=== PATIENT | male | born 1965 | race Caucasian/White ===

== ENCOUNTER 2017-09-25 23:04 | Emergency (ER) | payer BC ==
[~2017-09-25] VITALS: Ht 180.3 cm; Wt 116.7 kg
[2017-09-25 23:21] LABS: HEMATOCRIT 48.8 % (38.0-50.0); HEMOGLOBIN 16.4 G/DL (12.5-16.6); MCH 32.5 PG (29.0-34.0); MCHC 33.6 G/DL (30.0-36.0); MCV 96.6 FL (86-99); RBC DIS.WIDTH-CV 12.5 % (11.8-14.6); RBC DIS.WIDTH-SD 44.2 % (39-53); RED BLOOD COUNT 5.05 M/uL (4.00-5.50); WHITE BLOOD COUNT 7.1 K/uL (4.1-10.2)
[2017-09-25 23:30] LABS: APPEARANCE CLEAR ((CLEAR)); BILIRUBIN NEGATIVE; BLOOD NEGATIVE; COLOR AMBER ((YELLOW)); GLUCOSE (STRIP) NEGATIVE; KETONES NEGATIVE; LEUKOCYTES NEGATIVE; NITRITE NEGATIVE; PROTEIN (STRIP) NEGATIVE; SPECIFIC GRAVITY 1.025 (1.000-1.030); UCUL ADDED? NO
[2017-09-25 23:43] LABS: ALBUMIN 4.3 G/DL (3.2-4.8); CHLORIDE 104 MEQ/L (99-109); POTASSIUM 3.8 MEQ/L (3.7-5.4); SODIUM 138 MEQ/L (136-147); TOTAL BILIRUBIN 2.2 MG/DL (0.0-1.0)
[2017-09-25 23:48] LABS: ALKALINE PHOSPHATASE 190 IU/L (3-129); ALT (GPT) 295 IU/L (3-49); AST (GOT) 128 IU/L (2-34); GFR ESTIMATE (CALCULATED) > 59 mL/min/ (58.99-99999); GLUCOSE 99 mg/dL (70-99); LIPASE 33 U/L (1.0-51.0); TOTAL PROTEIN 7.3 G/DL (6.4-8.3); UREA NITROGEN (BUN) 20 mg/dL (9-23)
[2017-09-26 00:11] LABS: PLAT.SUFFICIENCY ADEQUATE; PLATELET COUNT 228 K/uL (156-360)
[2017-09-26 00:21] LABS: ACETAMINOPHEN (TYLENOL) < 10 MCG/ML (10-30); SALICYLATE < 3.0 MG/DL (15-30)
[2017-09-26 01:20] LABS: MONOSPOT (MONONUCLEOSIS SEROL) NEGATIVE
[2017-09-26 02:03] LABS: CREATINE KINASE 53 IU/L (1-294)
[2017-09-26] MEDS ORDERED: ULTRAM50 MG PO (02:07)
[2017-09-26] MEDS ORDERED: FLEXERIL10 MG PO (02:07)
[2017-09-26 02:48] VITALS: BP 123/67
== END 2017-09-26 02:49 | disposition home or self-care (01) ==
LOC: EME 23:04
PROVIDERS: Emergency Medicine
DX: R10.13 Epigastric pain (principal); R74.0 Nonspecific elevation of levels of transaminase and lactic acid dehydrogenase [LDH]; R79.89 Other specified abnormal findings of blood chemistry; Z87.442 Personal history of urinary calculi
CPT/HCPCS: 80053; 81003; 82140; 82248; 82550; 83690; 85027; 86308; 99281; 99285; G0480; J7030

== ENCOUNTER → 2017-09-30 | Outpatient (CLI) | payer BC ==
[~2017-09-30] MED LIST: FLEXERIL10 MG PO; ULTRAM50 MG PO
== END | disposition home or self-care (01) ==
LOC: CDC 09:24
DX: Z01.810 Encounter for preprocedural cardiovascular examination (principal); K80.20 Calculus of gallbladder without cholecystitis without obstruction; R00.1 Bradycardia, unspecified; R94.31 Abnormal electrocardiogram [ECG] [EKG]
CPT/HCPCS: 93000

== ENCOUNTER 2017-10-05 10:18 | Day surgery (SDC) | payer BC ==
[~2017-10-05] VITALS: Ht 180.3 cm; Wt 113.6 kg
[2017-10-05] MEDS ORDERED: MELOXICAM15 MG PO (10:31)
[2017-10-05] MEDS ORDERED: GABAPENTIN300 MG PO (10:31)
[2017-10-05] MEDS ORDERED: UROCIT-K15 MEQ PO (10:32)
[2017-10-05] MEDS ORDERED: HYDROCHLOROTH12.5 M3 PO (10:33)
[2017-10-05] MEDS ORDERED: LEVOCETIRIZINE D5 MG PO (10:34)
[2017-10-05] MEDS ORDERED: BENADRYL ALLERG25 MG PO (10:35)
[2017-10-05] MEDS ORDERED: TYLENOL EXTRA500 MG PO (10:37)
[2017-10-05 10:55] VITALS: BP 120/64
[2017-10-05] MEDS ORDERED: NORCO 5/3251 TABLET PO (13:04)
[2017-10-05 14:00] VITALS: BP 124/65
[2017-10-05 15:10] VITALS: BP 133/67
== END 2017-10-05 15:25 | disposition home or self-care (01) ==
LOC: SDC 10:18
PROC: 0FT44ZZ Resection of Gallbladder, Percutaneous Endoscopic Approach (ICD-10-PCS; principal; 2017-10-05)
PROC: 0FB04ZX Excision of Liver, Percutaneous Endoscopic Approach, Diagnostic (ICD-10-PCS; principal; 2017-10-05)
DX: K80.10 Calculus of gallbladder with chronic cholecystitis without obstruction (principal); K80.51 Calculus of bile duct without cholangitis or cholecystitis with obstruction; R94.5 Abnormal results of liver function studies; K66.0 Peritoneal adhesions (postprocedural) (postinfection); I10 Essential (primary) hypertension; E66.9 Obesity, unspecified; Z68.35 Body mass index [BMI] 35.0-35.9, adult; J30.9 Allergic rhinitis, unspecified; Z82.49 Family history of ischemic heart disease and other diseases of the circulatory system
CPT/HCPCS: 88304; 88307; 88313; J0330; J0690; J1170; J1885; J2405; J2710; J3010; J7643; S0020

== ENCOUNTER → 2017-11-10 | Outpatient (CLI) | payer BC ==
[~2017-11-10] MED LIST changes: +BENADRYL ALLERG25 MG PO; +GABAPENTIN300 MG PO; +HYDROCHLOROTH12.5 M3 PO; +LEVOCETIRIZINE D5 MG PO; +MELOXICAM15 MG PO; +NORCO 5/3251 TABLET PO; +TYLENOL EXTRA500 MG PO; +UROCIT-K15 MEQ PO
== END | disposition home or self-care (01) ==
LOC: NUC 08:57
DX: M47.896 Other spondylosis, lumbar region (principal); M17.0 Bilateral primary osteoarthritis of knee; M19.072 Primary osteoarthritis, left ankle and foot; M19.071 Primary osteoarthritis, right ankle and foot; R93.7 Abnormal findings on diagnostic imaging of other parts of musculoskeletal system
CPT/HCPCS: 78306; A9503